=== PATIENT | male | born 1980 | race Caucasian/White ===

== ENCOUNTER 2021-02-22 09:21 | Emergency (ER) | payer BC, SELFPAY ==
[2021-02-22 09:33] VITALS: BP 185/107; PULSE 103; RESP 18; TEMP 37; O2SAT 98; BMI 35.2
--- NOTE | 2021-02-22 09:43 | HMH.EDUTC ---
[facility] [place] Clinical Impression: Upper respiratory infection Qualifiers: URI type: unspecified viral URI Qualified Code(s): J06.9 - Acute upper respiratory infection, unspecified Disposition: Home, Self-Care Condition on Discharge: Good Instructions: DI for Viral Upper Respiratory Infection -- Adult Additional Instructions: You have been tested for COVID19. Please isolate yourself as if you are positive until test results received. Return to [facility] or ER if symptoms worsen Prescriptions: Brompheniramine/Pseudoephed/Dm [Bromfed DM Cough Syrup 5mL] 5 ml PO Q4HP PRN 10 Days #180 ml PRN Reason: Cough Transmission Status: Received by [facility] #[id number] predniSONE [Prednisone 20mg Tab] 20 mg PO BID 5 Days #10 tab Transmission Status: Sent to [facility] #[id number] Referrals: Provider,Referral, [Primary Care Provider] - Time of Disposition: 09:59 Medical Decision Making - Umair Inquiry Pt receiving controlled substance: No Vital Signs: 02/22/21 09:33 Temperature 98.6 F Temperature Source Oral Pulse Rate [Left] 103 H Respiratory Rate 18 Blood Pressure [Right Arm] 185/107 H Blood Pressure Mean [Right Arm] 133 02 Sat by Pulse Oximetry 98 - Lab Data Lab results reviewed: Yes: I reviewed the patient's lab results. [facility] [place] - General Stated complaint: sore throat, cough, runny nose, congestion Time Seen by Provider: 02/22/21 09:43 Mode of Arrival: Ambulatory Source of Information: Patient Limitations: No Limitations Description of Symptoms (Recalled from Triage Doc. by RN): pt c/o cough, runny ose, sneezing and a scratchy throat. HEENT Symptoms (Recalled from RN notes): Yes (nasal drainage/congestion, sneezing and scratchy throat) Resp Symptoms (Recalled from RN notes): Yes (cough) Skin Symptoms (Recalled from RN notes): No MS Symptoms (Recalled from RN notes): No Functional Status (Recalled from RN notes): na - History of Present Illness Provider Complaint: Sore throat, cough, congestion, runny nose X 2 days. No fever. No loss of taste or smell. No known exposure to COVID19. He has been vaccinated. Took Mucinex yesterday. No vomiting or diarrhea. Onset (ago): day(s) (2) Relieving factors: none Exacerbating factors: none Associated symptoms: denies other symptoms Treatments prior to arrival: other (Mucinex) - Related Data Previous Rx's Medication Instructions Recorded Brompheniramine/Pseudoephed/Dm 5 ml PO Q4HP PRN 10 Days #180 ml 02/22/21 [Bromfed DM Cough Syrup 5mL] predniSONE [Prednisone 20mg 20 mg PO BID 5 Days #10 tab 02/22/21 Tab] Allergies Allergy/AdvReac Type Severity Reaction Status Date / Time No Known Allergies Allergy Verified 02/22/21 09:40 - Worker's Comp Is this a Worker's Comp case?: No [facility] History - Hepatitis A Screen Drug use history?: No High risk sexual behaviors?: No History of sexually transmitted infection?: No Currently employed?: No Childcare worker?: No Do you have indoor plumbing?: Yes Do you have electricity?: Yes Attestation statement:: This patient has been screened for Hepatitis A risk factors. I have reviewed the patient's past medical history: Yes ROS Obtained: Yes All systems reviewed & no additional complaints - Constitutional Constitutional: Reports body ache, Denies fever(s), Reports malaise - ENT Ears, Nose, Mouth, and Throat: Reports nasal congestion, Reports nasal discharge, Reports sinus pain, Reports sore throat - Respiratory Respiratory: Reports cough Physical Exam - General General appearance: alert, in no apparent distress - Head Head exam: normocephalic - Eye Eye exam: Present: PERRL - ENT ENT exam: Present: TM's normal bilaterally - Expanded ENT Exam Nose exam: Present: sinus tenderness Throat exam: Present: other (PND) - Neck Neck exam: Present: normal inspection. Absent: lymphadenopathy - Chest Chest inspection: Present: normal inspection, symmetric c
[2021-02-22 09:57] LABS: UTC Strep Screen (Rapid) Negative (Negative)
[2021-02-22 10:06] VITALS: BP 174/101; PULSE 98; RESP 16; TEMP 36.9
== END 2021-02-22 10:07 | disposition home or self-care (01) ==
PROVIDERS: Emergency Provider Physician Assistant
DX: J06.9 Acute upper respiratory infection, unspecified (principal); Z20.822 Contact with and (suspected) exposure to COVID-19
CPT/HCPCS: 87880; 99203; C9803; G0463; U0003; U0005

== ENCOUNTER → 2021-09-20 14:40 | Outpatient (CLI) | payer BC, SELFPAY ==
[2021-09-20 14:18] LABS: Alanine Aminotransferase 34 U/L (12-78); Albumin Level 4.4 g/dl (3.5-5.0); Albumin/Globulin Ratio 1.5 (1.1-1.8); Alkaline Phosphatase 73 U/L (38-126); Anion Gap 12.8 mEq/L (5-15); Aspartate Amino Transferase 53 U/L (17-59); Bilirubin,Total 0.3 mg/dl (0.2-1.3); Blood Urea Nitrogen 19 mg/dl (9-20); Calcium 9.6 mg/dl (8.4-10.2); Carbon Dioxide 27 mmol/L (22.0-30.0); Chloride 102 mmol/L (98-107); Chol/HDL Ratio 6.1 (1-3.5); Cholesterol 206 mg/dl (140-200); Estimated Glomerular Filt Rate 124 ml/min (>60); GFR (African American) 150 ML/MIN (>60); Globulin 2.9 g/dL (1.3-3.2); Glucose 84 mg/dl (74-100); HDL Cholesterol 34 mg/dl (40-60); Potassium 3.8 mmoL/L (3.5-5.1); Sodium 138 mmol/L (136-145); Total Protein,Serum 7.3 g/dl (6.3-8.2); Triglycerides 183 mg/dl (30-150); VLDL Cholesterol 37 mg/dL (0-40)
[2021-09-20 14:30] LABS: Direct LDL Cholesterol 105.36 mg/dL (100-129)
[2021-09-20 14:33] LABS: 25-OH Vitamin D, Total 47.9 ng/mL (30-100)
[2021-09-20 14:50] LABS: Thyroid Stimulating Hormone 3.85 uIU/mL (0.465-4.68)
== END ==
PROVIDERS: PCP Nurse Practitioner Family; Visit Provider Nurse Practitioner Family
DX: I10 Essential (primary) hypertension (principal); E55.9 Vitamin D deficiency, unspecified; Z79.899 Other long term (current) drug therapy
CPT/HCPCS: 80053; 80061; 82306; 84436; 84443

== ENCOUNTER 2021-11-29 09:13 | Emergency (ER) | payer BC, SELFPAY ==
[2021-11-29 09:42] VITALS: BP 151/101; PULSE 98; RESP 15; TEMP 37; O2SAT 97; BMI 33.7
[2021-11-29 09:42] LABS: UTC Strep Screen (Rapid) Negative (Negative)
--- NOTE | 2021-11-29 10:05 | HMH.EDUTC ---
[facility] [place] Dis[place] Clinical Impression: Bronchitis Pharyngitis Qualifiers: Pharyngitis/tonsillitis etiology: unspecified etiology Qualified Code(s): J02.9 - Acute pharyngitis, unspecified Disposition: Home, Self-Care Condition on Discharge: Good Instructions: DI for Pharyngitis/Tonsillopharyngitis -- Adult, DI for Acute Bronchitis, Preventing the Spread of Coronavirus Discharge Instructions Additional Instructions: Drink plenty of fluids. Take tylenol or ibuprofen for pain or fever. Take the medications as directed. Follow up with your regular doctor. GO TO THE ER FOR ANY WORSENING SYMPTOMS Quarantine until you know the results of your covid-19 test. Notify your school or workplace of your results and follow their instructions regarding return to work/school. Prescriptions: Benzonatate [Benzonatate 100mg cap] 100 mg PO TIDP PRN #30 cap PRN Reason: Cough Transmission Status: Received by [facility] # methylPREDNISolone [Medrol] 4 mg PO DIRECTED 6 Days #21 packet Transmission Status: Received by [facility] # Azithromycin [Z-Michael 250mg Tab*] 250 mg PO UD DOSE PK #6 tab Transmission Status: Received by [facility] # Referrals: Rajiv Weems APRN [Primary Care Provider] - Time of Disposition: 10:33 Medical Decision Making - Medical Records Medical records reviewed: No: I reviewed the patient's medical records. - Umair Inquiry Pt receiving controlled substance: No Vital Signs: 11/29/21 09:42 11/29/21 10:34 Temperature 98.6 F 98.6 F Temperature Source Oral Pulse Rate 98 H Pulse Rate [Left] 98 H Respiratory Rate 15 15 Blood Pressure 151/101 H Blood Pressure [Right Arm] 151/101 H Blood Pressure Mean [Right Arm] 117 02 Sat by Pulse Oximetry 97 - Lab Data Lab Results 11/29/21 09:36: Strep Scn Rapid Clinic Negative [facility] HPI - General Stated complaint: Sore throat, cough, congestion Time Seen by Provider: 11/29/21 10:05 Mode of Arrival: Ambulatory Source of Information: Patient Limitations: No Limitations Description of Symptoms (Recalled from Triage Doc. by RN): patient comes in with complaints of sore throat, cough that began yesterday. patient states that he was exposed to covid by coworkers HEENT Symptoms (Recalled from RN notes): Yes Resp Symptoms (Recalled from RN notes): Yes Skin Symptoms (Recalled from RN notes): No MS Symptoms (Recalled from RN notes): No Functional Status (Recalled from RN notes): n/a - History of Present Illness Provider Complaint: He is here with complaints of sore throat for the past 2 days. He was exposed to covid-19 at his work about 4 days ago. - Related Data Home Medications Medication Instructions Recorded Confirmed cholecalciferol (vitamin D3) 1,250 1,250 mcg PO WEEKLY 09/20/21 09/20/21 mcg (50,000 unit) capsule Previous Rx's Medication Instructions Recorded amitriptyline 50 mg tablet 50 mg PO DAILY #30 tab 09/20/21 clonazepam 0.5 mg tablet 0.5 mg PO BID #4 tab 09/20/21 omeprazole 40 mg capsule,delayed 40 mg PO DAILY #30 cap 09/20/21 release propranolol 10 mg tablet 10 mg PO BID #30 tab 09/20/21 Azithromycin [Z-Michael 250mg Tab*] 250 mg PO UD DOSE PK #6 tab 11/29/21 Benzonatate [Benzonatate 100mg 100 mg PO TIDP PRN #30 cap 11/29/21 cap] methylPREDNISolone [Medrol] 4 mg PO DIRECTED 6 Days #21 11/29/21 packet Allergies Allergy/AdvReac Type Severity Reaction Status Date / Time No Known Allergies Allergy Verified 11/29/21 09:46 - Worker's Comp Is this a Worker's Comp case?: No [facility] History - Hepatitis A Screen Attestation statement:: This patient has been screened for Hepatitis A risk factors. I have reviewed the patient's past medical history: Yes Medical History: Reports:: Anxiety, Depression, Gastroesophageal Reflux Disease(GERD), Hyperlipidemia, Hypertension Other Medical History: Reports: Anemia Other Surgeries: Yes: No Previo
[2021-11-29 10:34] VITALS: BP 151/101; PULSE 98; RESP 15; TEMP 37
== END 2021-11-29 10:37 | disposition home or self-care (01) ==
PROVIDERS: Emergency Provider Nurse Practitioner Family; PCP Nurse Practitioner Family
DX: U07.1 COVID-19 (principal); J02.9 Acute pharyngitis, unspecified; D64.9 Anemia, unspecified; I10 Essential (primary) hypertension; K21.9 Gastro-esophageal reflux disease without esophagitis; E78.5 Hyperlipidemia, unspecified; G47.00 Insomnia, unspecified; F32.A Depression, unspecified; F41.9 Anxiety disorder, unspecified; Z79.52 Long term (current) use of systemic steroids; Z79.899 Other long term (current) drug therapy; Z82.49 Family history of ischemic heart disease and other diseases of the circulatory system; Z83.3 Family history of diabetes mellitus; Z80.9 Family history of malignant neoplasm, unspecified
CPT/HCPCS: 87880; 99213; C9803; G0463; U0003; U0005

== ENCOUNTER → 2022-07-23 09:30 | Outpatient (CLI) | payer BC, SELFPAY ==
[2022-07-23 13:35] LABS: Basophils # 0.1 K/mm3 (0-0.2); Basophils % 0.7 % (0.1-2.0); Eosinophils # 0.2 K/mm3 (0.0-0.4); Eosinophils % 2.4 % (0.1-12.0); Hematocrit 46.6 % (42.0-52.0); Lymphocytes # 2.1 K/mm3 (0.7-4.5); Lymphocytes % 30.3 % (10-50); Mean Corpuscular HGB Conc 32.2 g/dL (31.8-35.4); Mean Corpuscular Volume 86.9 fl (80-94); Mean Platelet Volume 9.9 fl (7.4-10.4); Monocytes # 0.4 K/mm3 (0.1-1.0); Monocytes % 5.7 % (1.7-9.3); Neutrophils # 4.3 K/mm3 (1.8-7.8); Neutrophils % 60.9 % (37.0-80.0); Platelet Count 211 K/mm3 (142-424); Red Blood Count 5.36 M/mm3 (4.60-6.20); Red Cell Distribution Width 13.8 % (11.5-17.5)
[2022-07-23 13:39] LABS: Chloride 103 mmol/L (98-107); Sodium 138 mmol/L (136-145)
[2022-07-23 13:40] LABS: Potassium 3.7 mmoL/L (3.5-5.1)
[2022-07-23 13:42] LABS: Alanine Aminotransferase 32 U/L (12-78); Albumin Level 4.9 g/dl (3.5-5.0); Albumin/Globulin Ratio 1.6 (1.1-1.8); Alkaline Phosphatase 71 U/L (38-126); Anion Gap 12.7 mEq/L (5-15); Aspartate Amino Transferase 38 U/L (17-59); Bilirubin,Total 0.6 mg/dl (0.2-1.3); Blood Urea Nitrogen 14 mg/dl (9-20); Carbon Dioxide 26 mmol/L (22.0-30.0); Cholesterol 210 mg/dl (140-200); Estimated Glomerular Filt Rate 123 ml/min (>60); GFR (African American) 149 ML/MIN (>60); Total Protein,Serum 7.9 g/dl (6.3-8.2); Triglycerides 209 mg/dl (30-150); VLDL Cholesterol 42 mg/dL (0-40)
[2022-07-23 13:43] LABS: Calcium 9.4 mg/dl (8.4-10.2); Chol/HDL Ratio 5.8 (1-3.5); Glucose 87 mg/dl (74-100); HDL Cholesterol 36 mg/dl (40-60)
[2022-07-23 13:54] LABS: Direct LDL Cholesterol 120.61 mg/dL (100-129)
[2022-07-23 14:13] LABS: Thyroid Stimulating Hormone 1.32 uIU/mL (0.465-4.68)
[2022-07-23 17:22] LABS: 25-OH Vitamin D, Total 40.4 ng/mL (30-100)
[2022-07-23 19:00] LABS: Prostate Specific Ag Screen 1.1 ng/ml (0.0-4.0)
[2022-07-23 21:15] LABS: Hemoglobin A1C 5.2 % (4.0-6.0)
== END ==
PROVIDERS: PCP Nurse Practitioner Family; Visit Provider Nurse Practitioner Family
DX: I10 Essential (primary) hypertension (principal); R53.83 Other fatigue; R73.03 Prediabetes; Z12.5 Encounter for screening for malignant neoplasm of prostate; E66.9 Obesity, unspecified; Z68.35 Body mass index [BMI] 35.0-35.9, adult
CPT/HCPCS: 80053; 80061; 82306; 83036; 84443; 85025; G0103

== ENCOUNTER 2023-06-18 22:37 | Outpatient (CLI) | payer BC, SELFPAY ==
[2023-06-18 18:57] LABS: Basophils % 0.8 % (0.1-2.0); Eosinophils # 0.2 K/mm3 (0.0-0.4); Eosinophils % 3.7 % (0.1-12.0); Hematocrit 39.2 % (42.0-52.0); Hemoglobin 12.3 g/dL (14.1-18.0); Lymphocytes % 40.3 % (10-50); Mean Corpuscular HGB Conc 31.3 g/dL (31.8-35.4); Mean Corpuscular Hemoglobin 26.2 pg (27.0-31.2); Mean Corpuscular Volume 83.8 fl (80-94); Mean Platelet Volume 11.1 fl (7.4-10.4); Monocytes # 0.3 K/mm3 (0.1-1.0); Monocytes % 6.2 % (1.7-9.3); Neutrophils # 2.4 K/mm3 (1.8-7.8); Neutrophils % 48.9 % (37.0-80.0); Platelet Count 231 K/mm3 (142-424); Red Blood Count 4.68 M/mm3 (4.60-6.20); Red Cell Distribution Width 14.5 % (11.5-17.5); White Blood Count 4.8 K/mm3 (4.8-10.8)
[2023-06-18 19:35] LABS: Alanine Aminotransferase 28 U/L (12-78); Albumin Level 4.6 g/dl (3.5-5.0); Albumin/Globulin Ratio 1.6 (1.1-1.8); Alkaline Phosphatase 75 U/L (38-126); Anion Gap 13.9 mEq/L (5-15); Aspartate Amino Transferase 40 U/L (17-59); Bilirubin,Total 0.3 mg/dl (0.2-1.3); Blood Urea Nitrogen 12 mg/dl (9-20); Calcium 9.4 mg/dl (8.4-10.2); Carbon Dioxide 25 mmol/L (22.0-30.0); Chloride 105 mmol/L (98-107); Chol/HDL Ratio 7.3 (1-3.5); Cholesterol 218 mg/dl (140-200); Estimated Glomerular Filt Rate 105 ml/min (>60); GFR (African American) 127 ML/MIN (>60); Globulin 2.8 g/dL (1.3-3.2); Glucose 117 mg/dl (74-100); HDL Cholesterol 30 mg/dl (40-60); Potassium 3.9 mmoL/L (3.5-5.1); Sodium 140 mmol/L (136-145); Total Protein,Serum 7.4 g/dl (6.3-8.2); Triglycerides 292 mg/dl (30-150); VLDL Cholesterol 58 mg/dL (0-40)
[2023-06-18 19:46] LABS: Direct LDL Cholesterol 118.22 mg/dL (100-129)
[2023-06-18 20:08] LABS: 25-OH Vitamin D, Total 31.7 ng/mL (30-100); Thyroid Stimulating Hormone 1.91 uIU/mL (0.465-4.68)
== END 2023-06-18 23:59 ==
PROVIDERS: PCP Nurse Practitioner Family; Visit Provider Nurse Practitioner Family
DX: R10.9 Unspecified abdominal pain (principal); R11.0 Nausea; R14.2 Eructation; E66.9 Obesity, unspecified; Z68.34 Body mass index [BMI] 34.0-34.9, adult; Z79.899 Other long term (current) drug therapy
CPT/HCPCS: 80053; 80061; 82306; 84443; 85025

== ENCOUNTER 2023-07-23 08:29 | Day surgery (SDC) | payer BC, SELFPAY ==
[2023-07-22 14:29] VITALS: BMI 36.6
[2023-07-23] VITALS (7 sets, daily range): BP systolic 103–144; BP diastolic 65–90; PULSE 85–104; RESP 18; TEMP 36.3–36.4; O2SAT 90–95
[2023-07-23] MEDS: LACTATED RINGERS 1000ML 1,000 ML 100 ML IV (08:51)
--- NOTE | 2023-07-23 09:56 | HMH.SCOPE ---
Procedure: Date: 07/23/23 Patient Date of :: 1980 Procedure Performed:: EGD & biopsies Indications:: GERD, dyspepsia Performing Provider:: Paul Menendez MD Referring Provider:: Rajiv Weems APRN Sedation:: Propofol Procedure:: The gastroscope was gently passed through the incisoral orifice into the oral cavity and under direct visualization the esophagus was intubated. The endoscope was passed down the esophagus, through the stomach, and into the duodenum. Color, texture, mucosa, and anatomy of the esophagus, stomach, and duodenum were carefully examined with the scope. Findings:: Oropharynx: normal Esophagus: normal EG Junction: intact at 40 cm Cardia: normal Fundus: normal Body: normal, biopsies obtained for h.pylori Antrum: normal Duodenal bulb: normal Duodenum (second and third portion): normal Impression: Normal EGD. No evidence of hiatus hernia or esophagitis Specimens:: Gastric Recommendations:: Antireflux behavior and PPI therapy as clinically indicated Complications:: None Estimated blood obtained (mL): 0 Colonoscopy Component Colonoscopy Component Was a colonoscopy performed during today's procedure?: No
--- NOTE | 2023-07-23 09:58 | HMH.SCOPE ---
Procedure: Date: 07/23/23 Patient Date of :: 1980 Procedure Performed:: Screening colonoscopy Indications:: Colorectal screening, rectal bleeding Performing Provider:: Paul Menendez MD Referring Provider:: Rajiv Weems APRN Sedation:: Propofol Procedure:: After placing the patient in the left lateral decubitus position, the colonoscopy was gently inserted into the rectum and under direct visualization advanced to the cecum which was identified by transillumination in the right lower quadrant, identification of the ileocecal valve, appendiceal orifice, and cecal strap. Color, texture, mucosa, and anatomy of the colon were carefully examined with the scope. Findings:: Anal canal: normal, external hemorrhoids Rectum: normal, irritated internal hemorrhoids Sigmoid colon: normal without polyps or inflammatory changes Descending colon: normal without polyps or inflammatory changes Splenic flexure: normal Transverse colon: normal without polyps or inflammatory changes Hepatic flexure: normal Ascending colon: normal without polyps or inflammatory changes Cecum: normal Terminal ileum: not visualized Impression: Normal colonoscopy Internal/external hemorrhoids Recommendations:: Follow up examination in about TEN years or so, sooner if clinically indicated. Complications:: None Estimated blood obtained (mL): 0 Colonoscopy Component Colonoscopy Component Was a colonoscopy performed during today's procedure?: Yes Recommended follow up colonoscopy of at least 10 years?: Yes
--- NOTE | 2023-07-23 10:34 | P.PNANES_ITS ---
[facility] Disclaimer: The information contained in this section may have been updated after the patient was seen, as this information can be updated by other users. Medical History History of gastroesophageal reflux (GERD) History of hypertension Bronchitis Pharyngitis Upper respiratory infection Surgical History History of esophagogastroduodenoscopy (EGD) Family History Other No significant family history Social History (Updated 07/23/23 @ 08:51 by Leticia Spencer RN) Smoking Status: Never smoker alcohol intake: never substance use type: denies use current occupational status: employed Travel in the last 8 weeks: None household members: spouse housing: house caffeine: Yes [facility] Anesthesia Checklist Patient Identification Patient Identification: Verbal (Name & ) Structural Data Admitted From: Home Planned Operative Procedure/s: egd,colonoscopy Consent for Planned Operative Procedure(s) Verified: Yes Airway Assessment Mallampati Score:: Class II C-Spine Mobility Assessed: Yes TMJ Mobility Assessed: Yes Dentition: Good Dentition Neurological Assessment Level of Consciousness: Awake, Alert and Appropriate Anesthesia Plan Anesthesia Risk discussed: Yes Anesthesia Plan: Verified ASA Class: II Anesthesia Type: MAC
== END 2023-07-23 10:35 | disposition home or self-care (01) ==
PROVIDERS: PCP Nurse Practitioner Family; Visit Provider Internal Medicine Gastroenterology
PROC: 0DJ08ZZ Inspection of Upper Intestinal Tract, Via Natural or Artificial Opening Endoscopic (ICD-10-PCS; CPT 43235; principal; 2023-07-23 09:30)
DX: K21.9 Gastro-esophageal reflux disease without esophagitis (principal); R10.13 Epigastric pain; K29.50 Unspecified chronic gastritis without bleeding; K62.5 Hemorrhage of anus and rectum; K64.4 Residual hemorrhoidal skin tags; K64.8 Other hemorrhoids
CPT/HCPCS: 43239; 45378; J2704

== ENCOUNTER 2024-03-23 08:42 | Emergency (ER) | payer BC, SELFPAY ==
[2024-03-23 10:15] VITALS: BP 128/84; PULSE 85; RESP 18; TEMP 37.1; O2SAT 98; BMI 35.2
--- NOTE | 2024-03-23 10:19 | EXP.UTC ---
Discharge Plan Disposition Patient Disposition: Home, Self-Care Condition: Good Prescriptions Prescriptions: New azithromycin [Zithromax] 250 mg tablet 250 mg PO UD DOSE PK Qty: 6 0RF Rx Instructions: Take two (2) tablets today, then one (1) tablet days #2 thru #5 benzonatate 100 mg capsule 100 mg PO TIDP PRN (Reason: Cough) Qty: 30 0RF methylprednisolone 4 mg Tablets,Dose Pack 4 mg PO DIRECTED 6 Days Qty: 21 0RF Rx Instructions: Take 1 pack as directed for 6 days No Action amitriptyline 75 mg tablet 75 mg PO DAILY Qty: 90 3RF propranolol 10 mg tablet 10 mg PO BID Qty: 180 1RF dicyclomine 20 mg tablet 20 mg PO TID Qty: 90 2RF esomeprazole magnesium [Nexium] 20 mg Capsule,Delayed Release(Dr/Ec) 20 mg PO DAILY Referrals Follow up/Referrals: Rajiv Weems APRN [Primary Care Provider] - See instructions Activity Restrictions/Add. Instructions Additional Instructions/Restrictions: Drink plenty of fluids. Take tylenol or ibuprofen for pain or fever. Take the medications as directed. Follow up with your regular doctor. GO TO THE ER FOR ANY WORSENING SYMPTOMS Clinical Impressions Clinical Impression: Otitis media, Pharyngitis Stand Alone Forms Stand Alone Forms: Work/School Release Instructions Patient Instructions: Sore Throat, DI for Pharyngitis/Tonsillopharyngitis -- Adult Print Language Print Language: Belgian Discharge ED Provider: Vladimri Baker [facility] General Stated complaint: losing voice, cough, sore throat Time Seen by Provider: 03/23/24 10:19 Related Data Home Medications ?Medication ?Instructions ?Recorded ?Confirmed esomeprazole magnesium 20 mg 20 mg PO DAILY 07/23/23 03/23/24 capsule,delayed release (Nexium) Previous Rx's ?Medication ?Instructions ?Recorded amitriptyline 75 mg tablet 75 mg PO DAILY muscle spasms #90 05/07/23 tabs propranolol 10 mg tablet 10 mg PO BID #180 tabs 05/07/23 dicyclomine 20 mg tablet 20 mg PO TID #90 tabs 11/10/23 azithromycin 250 mg tablet 250 mg PO UD DOSE PK #6 tabs 03/23/24 (Zithromax) benzonatate 100 mg capsule 100 mg PO TIDP PRN Cough #30 caps 03/23/24 methylprednisolone 4 mg tablets in 4 mg PO DIRECTED 6 days #21 tabs 03/23/24 a dose pack Allergies Allergy/AdvReac Type Severity Reaction Status Date / Time No Known Allergies Allergy Verified 07/23/23 08:38 [facility] Disclaimer: The information contained in this section may have been updated after the patient was seen, as this information can be updated by other users. Medical History (Updated 03/23/24 @ 10:38 by Vladimir Baker APRN) Depression Anxiety History of gastroesophageal reflux (GERD) History of hypertension Bronchitis Pharyngitis Upper respiratory infection Surgical History History of esophagogastroduodenoscopy (EGD) Family History Other No significant family history Social History (Updated 07/23/23 @ 10:35 by Dickson Marquez CRNA) Smoking Status: Never smoker alcohol intake: never substance use type: denies use current occupational status: employed Travel in the last 8 weeks: None household members: spouse housing: house caffeine: Yes ROS Obtained: Yes All systems reviewed & no additional complaints except as documented Constitutional Constitutional: Reports poor appetite Eyes Eyes: Reports system reviewed and no additional complaints, except as documented ENT Ears, Nose, Mouth, and Throat: Reports as per HPI Cardiovascular Cardiovascular: Reports system reviewed and no additional complaints, except as documented and Denies chest pain Respiratory Respiratory: Denies shortness of breath, Denies chest congestion, Reports cough, Denies stridor and Denies wheezing Gastrointestinal Gastrointestingal: Reports system reviewed and no additional complaints, except as documented; Denies abdominal pain, diarrhea or vomiting Musculoskeletal Musculoskeletal: Reports system reviewed and no additional complaints, except as documented and Denies arthralgias Integumentary/Breasts Skin/Breast: Reports system reviewed and no additional complaints, except as documented and Denies rash Neurologic Neurologic: Denies paresthesias Allergic/Immunologic Allergic/Immunologic: Denies wheezing Physical Exam General General appearance: alert and in no apparent distress Eye Eye exam: Present normal appearance, PERRL and EOMI ENT ENT exam: Present mucous membranes moist and normal external ear exam Expanded ENT Exam External ear exam: Present normal external inspection TM/Canal exam: Bilateral TM: erythema and bulging Nose exam: Absent sinus tenderness Nasal speculum exam: Bilateral: normal Mouth exam: Present normal external inspection; Absent drooling Teeth exam: Present normal inspection Throat exam: Present tonsillar erythema and tonsillomegaly Neck Neck exam: Present normal inspection, full ROM and trachea midline; Absent tenderness, lymphadenopathy or thyromegaly Chest Chest inspection: Present normal inspection and symmetric chest wall rise; Absent tenderness or rash Respiratory Respiratory exam: Present normal lung sounds bilaterally; Absent respiratory distress, wheezes, stridor or accessory muscle use Cardiovascular Cardiovascular exam: Present regular rate, normal rhythm and normal heart sounds Abdominal Exam Abdominal exam: Present soft; Absent distention, tenderness, guarding, rebound or rigidity Extremities Exam Extremities exam: Present normal inspection, full ROM and normal capillary refill; Absent tenderness or calf tenderness Back Exam Back exam: Present normal inspection and full ROM; Absent tenderness Neurological Exam Neurological exam: Present alert and oriented X3 Psychiatric Psychiatric exam: Present normal affect and normal mood Skin Skin exam: Present warm, dry, intact and normal color Lymphatic Lymphatic Findings: no adenopathy Medical Decision Making Medical Records Medical records reviewed: No I reviewed the patient's medical records. Screening: Per USPSTF and CDC recommendations, given the prevalence of disease in our region, it is our hospital?s policy to screen for HIV and viral Hepatitis for all patients aged 18 and over and those with ongoing risk factors. Umair Inquiry Pt receiving controlled substance: No
[2024-03-23 10:29] LABS: UTC Strep Screen (Rapid) Negative (Negative)
[2024-03-23 10:40] VITALS: BP 128/84; PULSE 85; RESP 18; TEMP 37.1; O2SAT 98
== END 2024-03-23 10:42 | disposition home or self-care (01) ==
LOC: UTC 08:55 → ER 09:01 → UTC 09:01
PROVIDERS: Emergency Provider Nurse Practitioner Family; PCP Nurse Practitioner Family
DX: H66.93 Otitis media, unspecified, bilateral (principal); J02.9 Acute pharyngitis, unspecified; R05.9 Cough, unspecified; R63.8 Other symptoms and signs concerning food and fluid intake
CPT/HCPCS: 87880; 99212; G0381

== ENCOUNTER 2024-03-25 10:24 | Outpatient (CLI) | payer BC, SELFPAY ==
[2024-03-25 18:22] LABS: Iron 39 ug/dL (49-181)
[2024-03-25 18:32] LABS: Total Iron Binding Capacity 523 ug/dL (261-462)
[2024-03-25 18:39] LABS: HIV (1&2) Antibody Rapid NONREACTIVE (NONREACTIVE)
[2024-03-25 18:53] LABS: Prostate Specific Ag Screen 0.9 ng/ml (0.0-4.0)
[2024-03-27 08:36] LABS: HCV Ab Non Reactive (Non Reactive)
[2024-03-31 01:07] LABS: F001-IgE Egg White <0.10 kU/L (Class 0); F002-IgE Milk <0.10 kU/L (Class 0); F003-IgE Codfish <0.10 kU/L (Class 0); F004-IgE Wheat <0.10 kU/L (Class 0); F010-IgE Sesame Seed <0.10 kU/L (Class 0); F013-IgE Peanut <0.10 kU/L (Class 0); F014-IgE Soybean <0.10 kU/L (Class 0); F024-IgE Shrimp <0.10 kU/L (Class 0); F256-IgE Walnut <0.10 kU/L (Class 0); F338-IgE Scallop <0.10 kU/L (Class 0)
== END 2024-03-25 23:59 | disposition home or self-care (01) ==
LOC: LAB.DROPOF 03-27 08:56
PROVIDERS: PCP Family Medicine; Visit Provider Family Medicine
DX: Z00.00 Encounter for general adult medical examination without abnormal findings (principal); Z11.59 Encounter for screening for other viral diseases; R10.9 Unspecified abdominal pain
CPT/HCPCS: 83540; 83550; 86003; 86008; 86803; 87389; G0103

== ENCOUNTER 2024-04-10 18:13 | Emergency (ER) | payer BC, SELFPAY ==
[2024-04-10 18:55] VITALS: BP 151/85; PULSE 114; RESP 20; TEMP 37.4; O2SAT 97; BMI 34.9
--- NOTE | 2024-04-10 19:17 | EXP.UTC ---
Discharge Plan Disposition Patient Disposition: Home, Self-Care Condition: Good Prescriptions Prescriptions: New cefdinir 300 mg capsule 300 mg PO BID Qty: 20 0RF fluticasone propionate [Flonase Allergy Relief] 50 mcg/actuation spray,suspension 2 spray intranasal DAILY Qty: 16 0RF Rx Instructions: administer into each nostril daily guaifenesin [Mucinex] 1,200 mg tablet extended release 12hr 1,200 mg PO Q12H PRN (Reason: congestion) Qty: 20 0RF No Action lisinopril-hydrochlorothiazide 10-12.5 mg tablet 1 tab PO DAILY Qty: 30 2RF amitriptyline 75 mg tablet 75 mg PO DAILY Qty: 90 3RF propranolol 10 mg tablet 10 mg PO BID Qty: 180 1RF esomeprazole magnesium [Nexium] 20 mg capsule,delayed release(DR/EC) 20 mg PO DAILY Referrals Follow up/Referrals: Tawnya Perales PA [Primary Care Provider] - See instructions Activity Restrictions/Add. Instructions Additional Instructions/Restrictions: *Monitor Temp, Over the counter Motrin or Tylenol as directed/as needed Tylenol every 4 hours and Motrin every 6 hours (as long as your family doctor has told you that you can take it) for fever or pain. and straight to ER if unable to lower temp less than 101.0 after medication given *Warm salt water gargles may help to soothe the throat *Throat Lozenges? *Warm fluids like tea with honey may help to soothe the throat? *Sleep elevated *Humidifier/Vaporizer Take medication as prescribed Your throat swab was sent for culture. Those results are typically sent to your primary care. Be sure to follow up in 2-3 days with your family doctor/primary care physician if no improvement so they can review those result and treat if necessary. If you don?t have a primary care doctor, I recommend you get one but in the mean time, you will have to return to a walk in clinic Follow up IMMEDIATELY for new or worsening symptoms or no Noticeable improvement over the next 48-72 hours. 911 for difficulty breathing or swallowing Clinical Impressions Clinical Impression: Otitis media Stand Alone Forms Stand Alone Forms: Work/School Release Instructions Patient Instructions: Middle Ear Infection, Cefdinir Print Language Print Language: Sinhala Discharge ED [place] Cu[place] [facility] [place] General Stated complaint: cough, h/a, body aches Mode of Arrival: Ambulatory Source of Information: Patient Limitations: No Limitations Time Seen by Provider: 04/10/24 19:17 Description of Symptoms (Recalled from Triage Doc. by RN): PATIENT C/O COUGH, BODY ACHES, STOPPED UP EAR, HEADACHE, AND SCRATCHY THROAT HEENT Symptoms (Recalled from RN notes): Yes Resp Symptoms (Recalled from RN notes): Yes Skin Symptoms (Recalled from RN notes): No MS Symptoms (Recalled from RN notes): No Functional Status (Recalled from RN notes): WNL History of Present Illness Provider Complaint: Patient states that he has been having pain and pressure in his left ear for several weeks States that he was recently on a zpack and it did help but as soon as the medication stopped his ear pain returned States also been having scratchy throat, body aches and cough so he came back in to get checked Related Data Home Medications ?Medication ?Instructions ?Recorded ?Confirmed esomeprazole magnesium 20 mg 20 mg PO DAILY 03/25/24 04/10/24 capsule,delayed release (Nexium) Previous Rx's ?Medication ?Instructions ?Recorded amitriptyline 75 mg tablet 75 mg PO DAILY muscle spasms #90 03/25/24 tabs lisinopril 10 1 tab PO DAILY #30 tabs 03/25/24 mg-hydrochlorothiazide 12.5 mg tablet propranolol 10 mg tablet 10 mg PO BID #180 tabs 03/25/24 cefdinir 300 mg capsule 300 mg PO BID #20 caps 04/10/24 fluticasone propionate 50 2 spray intranasal DAILY #16 grams 04/10/24 mcg/actuation nasal spray,suspension (Flonase Allergy Relief) guaifenesin 1,200 mg tablet, 1,200 mg PO Q12H PRN congestion 04/10/24 extended release 12 hr (Mucinex) #20 tabs Allergies Allergy/AdvReac Type Severity Reaction Status Date / Time No Known Allergies Allergy Verified 03/25/24 09:42 Worker's Comp Is this a Worker's Comp case?: No [facility] Disclaimer: The information contained in this section may have been updated after the patient was seen, as this information can be updated by other users. Medical History Depression Anxiety History of gastroesophageal reflux (GERD) History of hypertension Bronchitis Pharyngitis Upper respiratory infection Surgical History History of esophagogastroduodenoscopy (EGD) Family History Other No significant family history Social History Smoking Status: Never smoker alcohol intake: never substance use type: denies use current occupational status: employed Travel in the last 8 weeks: None household members: spouse housing: house caffeine: Yes Have you lived/traveled outside [place] in past 30 days?: No Contact w/someone who lives/traveled outside US past 30 days?: No Exposure to someone with infectious disease in past 14 days?: No Do you have a fever (greater than 100.4 F or 38 C)?: No Have you tested positive for COVID-19: No Exposed to someone with COVID-19 in past 14 days?: No Do you have a sore throat?: No Do you have a cough?: Yes Do you have any weakness?: No Do you have any diarrhea?: No Are you experiencing any unusual bleeding?: No Do you have any muscle aches/pain?: Yes Do you have any abdominal pain?: No Are you experiencing loss of taste or smell?: No ROS Obtained: Yes All systems reviewed & no additional complaints except as documented and Yes Systems reviewed as appropriate & no additional complaints except as documented Constitutional Constitutional: Reports system reviewed and no additional complaints, except as documented, Reports as per HPI, Reports body ache and Reports chills ENT Ears, Nose, Mouth, and Throat: Reports system reviewed and no additional complaints, except as documented, Reports as per HPI, Reports otalgia, Reports nasal congestion, Reports nasal discharge and Reports sore throat Cardiovascular Cardiovascular: Reports system reviewed and no additional complaints, except as documented and Reports as per HPI Respiratory Respiratory: Reports system reviewed and no additional complaints, except as documented, Reports as per HPI and Reports cough Gastrointestinal Gastrointestingal: Reports system reviewed and no additional complaints, except as documented and as per HPI Physical Exam General General appearance: alert and in no apparent distress ENT ENT exam: Present mucous membranes moist Expanded ENT Exam TM/Canal exam: Left TM: erythema and bulging Nose exam: Absent sinus tenderness Throat exam: Present normal inspection Respiratory Respiratory exam: Present normal lung sounds bilaterally; Absent respiratory distress or wheezes Cardiovascular Cardiovascular exam: Present regular rate, normal rhythm and normal heart sounds Neurological Exam Neurological exam: Present alert, oriented X3 and normal gait Medical Decision Making Medical Records Screening: Per USPSTF and CDC recommendations, given the prevalence of disease in our region, it is our hospital?s policy to screen for HIV and viral Hepatitis for all patients aged 18 and over and those with ongoing risk factors. Umair Inquiry Pt receiving controlled substance: No Umair was queried for this patient: No Vital Signs: 04/10/24 18:55 Temperature 99.4 F Temperature Source Oral Pulse Rate [Left Brachial] 114 H Respiratory Rate 20 Blood Pressure [Left Arm] 151/85 H Blood Pressure Mean [Left Arm] 107 Blood Pressure Source [Left Arm] Automatic Cuff Blood Pressure Position [Left Arm] Sitting 02 Sat by Pulse Oximetry 97 Oxygen Delivery Method Room Air Lab Data Lab results reviewed: Yes I reviewed the patient's lab results.
[2024-04-10 19:23] LABS: UTC Influenza A Antigen Negative (Negative); UTC Influenza B Antigen Negative (Negative); UTC Strep Screen (Rapid) Negative (Negative)
[2024-04-10 19:32] VITALS: BP 151/85; PULSE 114; RESP 20; TEMP 37.4; O2SAT 97
== END 2024-04-10 19:33 | disposition home or self-care (01) ==
PROVIDERS: Emergency Provider Nurse Practitioner; PCP Student in an Organized Health Care Education/Training Program
DX: H66.93 Otitis media, unspecified, bilateral (principal)
CPT/HCPCS: 87635; 87804; 87880; 99213; G0381

== ENCOUNTER 2024-06-02 12:52 | Outpatient (CLI) | payer BC, SELFPAY ==
[2024-06-02 14:35] VITALS: BMI 35.7
== END 2024-06-02 23:59 | disposition home or self-care (01) ==
LOC: DIETICIAN 12:55
PROVIDERS: Visit Provider Nurse Practitioner Family
DX: R10.9 Unspecified abdominal pain (principal); R19.7 Diarrhea, unspecified
CPT/HCPCS: 97802

== ENCOUNTER 2024-06-30 09:44 | Outpatient (CLI) | payer BC, SELFPAY ==
[2024-06-30 18:53] LABS: Basophils % 0.6 % (0.1-2.0); Eosinophils # 0.1 K/mm3 (0.0-0.4); Eosinophils % 2.2 % (0.1-12.0); Hematocrit 38.1 % (42.0-52.0); Hemoglobin 11.3 g/dL (14.1-18.0); Lymphocytes # 0.6 K/mm3 (0.7-4.5); Lymphocytes % 11.4 % (10-50); Mean Corpuscular HGB Conc 29.7 g/dL (31.8-35.4); Mean Corpuscular Hemoglobin 22.7 pg (27.0-31.2); Mean Corpuscular Volume 76.5 fl (80-94); Mean Platelet Volume 11.6 fl (7.4-10.4); Monocytes # 0.5 K/mm3 (0.1-1.0); Monocytes % 9.4 % (1.7-9.3); Neutrophils # 4.2 K/mm3 (1.8-7.8); Neutrophils % 76.2 % (37.0-80.0); Platelet Count 199 K/mm3 (142-424); Red Blood Count 4.98 M/mm3 (4.60-6.20); Red Cell Distribution Width 17.5 % (11.5-17.5); White Blood Count 5.4 K/mm3 (4.8-10.8)
[2024-06-30 20:18] LABS: Ferritin 8.89 ng/ml (17.9-464)
[2024-06-30 20:21] LABS: Iron 47 ug/dL (49-181)
[2024-06-30 22:05] LABS: Total Iron Binding Capacity 497 ug/dL (261-462)
[2024-07-02 08:20] LABS: Testosterone,Total 250 ng/dL (264-916)
== END 2024-06-30 23:59 | disposition home or self-care (01) ==
LOC: LAB.DROPOF 07-01 10:07
PROVIDERS: PCP Family Medicine; Visit Provider Family Medicine
DX: Z00.00 Encounter for general adult medical examination without abnormal findings (principal); D50.9 Iron deficiency anemia, unspecified; R53.83 Other fatigue
CPT/HCPCS: 82728; 83540; 83550; 84403; 85025

== ENCOUNTER 2024-07-21 17:52 | Outpatient (CLI) | payer BC, SELFPAY ==
[2024-07-23 08:13] LABS: LH 3.2 mIU/mL (1.7-8.6)
[2024-07-28 00:08] LABS: Free Testosterone (Direct) 7.8 pg/mL (6.8-21.5)
== END 2024-07-21 23:59 | disposition home or self-care (01) ==
LOC: LAB.DROPOF 17:53
PROVIDERS: PCP Family Medicine; Visit Provider Family Medicine
DX: R79.89 Other specified abnormal findings of blood chemistry (principal)
CPT/HCPCS: 83002; 84402; 84403

== ENCOUNTER 2024-07-22 11:59 | Outpatient (CLI) | payer BC, SELFPAY ==
[2024-07-22] MEDS: SODIUM CHLORIDE 0.9% 50ML BAG 50 ML IV (12:10)
[2024-07-22] MEDS: IRON SUCROSE COMPLEX 200 MG in 0.9 % SODIUM CHLORIDE 100 ML 220 MG IV (12:10)
[2024-07-22 12:15] VITALS: BP 143/75; PULSE 98; RESP 17; TEMP 36.6; O2SAT 96
[2024-07-22 12:45] VITALS: BP 140/79; PULSE 95; RESP 17; O2SAT 96
== END 2024-07-22 13:00 | disposition home or self-care (01) ==
LOC: INF 11:59
PROVIDERS: PCP Family Medicine; Visit Provider Internal Medicine Medical Oncology
DX: D50.9 Iron deficiency anemia, unspecified (principal)
CPT/HCPCS: 96365; J1756

== ENCOUNTER 2024-07-29 09:49 | Outpatient (CLI) | payer BC, SELFPAY ==
[2024-07-29 10:11] VITALS: BP 141/76; PULSE 91; RESP 18; TEMP 36.4; O2SAT 99
[2024-07-29] MEDS: IRON SUCROSE COMPLEX 200 MG in 0.9 % SODIUM CHLORIDE 100 ML 220 MG IV (10:11)
[2024-07-29] MEDS: SODIUM CHLORIDE 0.9% 50ML BAG 50 ML IV (10:11)
[2024-07-29] MEDS: SODIUM CHLORIDE 0.9% 10ML FLUSH SYRINGE 10 ML IV (10:17)
[2024-07-29 10:48] VITALS: BP 130/70; PULSE 88; RESP 20; O2SAT 99
== END 2024-07-29 10:55 | disposition home or self-care (01) ==
LOC: INF 09:50
PROVIDERS: PCP Family Medicine; Visit Provider Internal Medicine Medical Oncology
DX: D50.9 Iron deficiency anemia, unspecified (principal)
CPT/HCPCS: 96365; J1756

== ENCOUNTER 2024-08-05 14:04 | Outpatient (CLI) | payer BC, SELFPAY ==
[2024-08-05] MEDS: SODIUM CHLORIDE 0.9% 50ML BAG 50 ML IV (14:20)
[2024-08-05] MEDS: SODIUM CHLORIDE 0.9% 10ML FLUSH SYRINGE 10 ML IV (14:20)
[2024-08-05] MEDS: IRON SUCROSE COMPLEX 200 MG in 0.9 % SODIUM CHLORIDE 100 ML 220 MG IV (14:21)
[2024-08-05 14:24] VITALS: BP 144/95; PULSE 92; RESP 20; TEMP 36.9; O2SAT 96
[2024-08-05 15:10] VITALS: BP 152/91; PULSE 98; RESP 20; O2SAT 97
== END 2024-08-05 15:10 | disposition home or self-care (01) ==
LOC: INF 14:06
PROVIDERS: PCP Family Medicine; Visit Provider Internal Medicine Medical Oncology
DX: D50.9 Iron deficiency anemia, unspecified (principal)
CPT/HCPCS: 96365; J1756

== ENCOUNTER 2024-08-12 14:08 | Outpatient (CLI) | payer BC, SELFPAY ==
[2024-08-12 14:40] VITALS: BP 124/74; PULSE 74; RESP 18; O2SAT 100
[2024-08-12] MEDS: IRON SUCROSE COMPLEX 200 MG in 0.9 % SODIUM CHLORIDE 100 ML 220 MG IV (14:40)
[2024-08-12 15:14] VITALS: BP 126/72; PULSE 75; RESP 18; O2SAT 100
[2024-08-12] MEDS: SODIUM CHLORIDE 0.9% 50ML BAG 50 ML IV (15:24)
[2024-08-12] MEDS: SODIUM CHLORIDE 0.9% 10ML FLUSH SYRINGE 10 ML IV (15:25)
== END 2024-08-12 15:25 | disposition home or self-care (01) ==
LOC: INF 14:08
PROVIDERS: PCP Family Medicine; Visit Provider Internal Medicine Medical Oncology
DX: D50.9 Iron deficiency anemia, unspecified (principal)
CPT/HCPCS: 96365; J1756

== ENCOUNTER 2024-08-19 10:38 | Outpatient (CLI) | payer BC, SELFPAY ==
[2024-08-19] MEDS: IRON SUCROSE COMPLEX 200 MG in 0.9 % SODIUM CHLORIDE 100 ML 220 MG IV (10:49)
[2024-08-19] MEDS: SODIUM CHLORIDE 0.9% 50ML BAG 50 ML IV (10:50)
[2024-08-19 10:52] VITALS: BP 123/75; PULSE 89; RESP 18; TEMP 36.2; O2SAT 95
[2024-08-19 11:38] VITALS: BP 137/73; PULSE 87; RESP 18; O2SAT 95
== END 2024-08-19 11:38 | disposition home or self-care (01) ==
LOC: INF 10:39
PROVIDERS: PCP Family Medicine; Visit Provider Internal Medicine Medical Oncology
DX: D50.9 Iron deficiency anemia, unspecified (principal)
CPT/HCPCS: 96365; J1756

== ENCOUNTER 2024-09-22 13:48 | Outpatient (CLI) | payer BC, SELFPAY ==
[2024-09-22 14:14] LABS: Basophils % 0.4 % (0.1-2.0); Eosinophils # 0.2 Kmm3 (0.0-0.4); Eosinophils % 4.5 % (0.1-12.0); Hemoglobin 8.8 g/dL (14.1-18.0); Immature Granulocytes # 0 10^3uL; Immature Granulocytes % 0 %; Lymphocytes # 1.4 K/mm3 (0.7-4.5); Lymphocytes % 30.8 % (10-50); Mean Corpuscular HGB Conc 30.3 g/dL (31.8-35.4); Mean Corpuscular Hemoglobin 22.4 pg (27.0-31.2); Mean Corpuscular Volume 73.8 fl (80-94); Mean Platelet Volume 11.3 fl (7.4-10.4); Monocytes # 0.5 K/mm3 (0.1-1.0); Monocytes % 11.7 % (1.7-9.3); Neutrophils # 2.3 K/mm3 (1.8-7.8); Neutrophils % 52.6 % (37.0-80.0); Nucleated Red Blood Cells # 0 10^3/uL; Nucleated Red Blood Cells % 0 %; Platelet Count 233 K/mm3 (142-424); Red Blood Count 3.93 M/mm3 (4.60-6.20); Red Cell Distribution Width 15.8 % (11.5-17.5); Red Cell Distribution Width-SD 42.2 fL; White Blood Count 4.5 K/mm3 (4.8-10.8)
[2024-09-22 15:43] LABS: Iron 44 ug/dL (49-181)
[2024-09-22 15:53] LABS: Total Iron Binding Capacity 452 ug/dL (261-462)
[2024-09-22 16:20] LABS: Ferritin 6.12 ng/ml (17.9-464)
== END 2024-09-22 23:59 | disposition home or self-care (01) ==
LOC: LAB 13:50
PROVIDERS: PCP Family Medicine; Visit Provider Internal Medicine Medical Oncology
DX: D50.9 Iron deficiency anemia, unspecified (principal)
CPT/HCPCS: 36415; 82728; 83540; 83550; 85025

== ENCOUNTER 2024-09-30 14:01 | Outpatient (CLI) | payer BC, SELFPAY ==
--- OUTSIDE RECORDS SUMMARY | 2005-08-19 08:33 | XMS_ITS | Continuity of Care Document ---
Author Organization [facility] Address 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 Please verify the information with the johnson of the legal document before using it for clinical purposes. Encounters Encounter Description Practice Location Reason(s) For Visit Diagnoses Date Provider Providers Copied on Encounter [facility], [address], [place], [place], [id number], tel:[phone] [facility] No Information Robson Ott. [address], [place], [place], [id number], [place]. tel:[phone] Referring Provider: Tru Pope, [address], [place], [address]. tel:[phone] Family History Family Member Type Diagnosis Age At Onset No Information Payers Payer name Insurance type Covered democrat ID Authoriza tion(s) No Information Social History Type Description Quantity Date Captured Comments Alcohol Use Details Unknown Caffeine Use Details Unknown Tobacco Use Status No Information Smoking Status No Information Sex Male Chief Complaint And Reason For Visit No Information Reason For Referral Reason For Referral No Information History Of Present Illness Encounter Date Complaint History Of Prese nt Illness No Information Functional Status Date Functional Assessmen t No Information Instructions Date Instruction Additional Infor mation No Information Assessments Type Assessment Date No Information Patient Care Teams Name Effective Dates (start - stop) Status Members No Information
[2024-09-30 15:01] LABS: Basophils % 0.7 % (0.1-2.0); Eosinophils # 0.2 Kmm3 (0.0-0.4); Eosinophils % 3.8 % (0.1-12.0); Hematocrit 28.5 % (42.0-52.0); Hemoglobin 8.4 g/dL (14.1-18.0); Immature Granulocytes # 0.01 10^3uL; Immature Granulocytes % 0.2 %; Lymphocytes # 1.6 K/mm3 (0.7-4.5); Lymphocytes % 36.2 % (10-50); Mean Corpuscular HGB Conc 29.5 g/dL (31.8-35.4); Mean Corpuscular Hemoglobin 22.2 pg (27.0-31.2); Mean Corpuscular Volume 75.2 fl (80-94); Mean Platelet Volume 11.5 fl (7.4-10.4); Monocytes # 0.5 K/mm3 (0.1-1.0); Monocytes % 11.8 % (1.7-9.3); Neutrophils # 2.1 K/mm3 (1.8-7.8); Neutrophils % 47.3 % (37.0-80.0); Nucleated Red Blood Cells # 0 10^3/uL; Nucleated Red Blood Cells % 0 %; Platelet Count 247 K/mm3 (142-424); Red Blood Count 3.79 M/mm3 (4.60-6.20); Red Cell Distribution Width-SD 43.6 fL; White Blood Count 4.5 K/mm3 (4.8-10.8)
== END 2024-09-30 23:59 | disposition home or self-care (01) ==
LOC: LAB 14:02
PROVIDERS: PCP Family Medicine; Visit Provider Internal Medicine Medical Oncology
DX: D50.9 Iron deficiency anemia, unspecified (principal)
CPT/HCPCS: 36415; 85025

== ENCOUNTER 2024-10-03 12:25 | Day surgery (SDC) | payer BC, SELFPAY ==
[2024-09-30 09:52] VITALS: BMI 35.2
[2024-10-03] VITALS (7 sets, daily range): BP systolic 72–126; BP diastolic 50–70; PULSE 86–110; RESP 17–18; TEMP 36.2–36.4; O2SAT 96–97
--- NOTE | 2024-10-03 13:07 | P.PNANES_ITS ---
[facility] Disclaimer: The information contained in this section may have been updated after the patient was seen, as this information can be updated by other users. Medical History Otitis media Pharyngitis Depression Anxiety History of gastroesophageal reflux (GERD) History of hypertension Bronchitis Pharyngitis Upper respiratory infection Surgical History History of esophagogastroduodenoscopy (EGD) Family History Other No significant family history Social History Smoking Status: Never smoker alcohol intake: never substance use type: denies use current occupational status: employed Travel in the last 8 weeks?: None household members: spouse housing: house caffeine: Yes Have you lived/traveled outside [place] in past 30 days?: No Contact w/someone who lives/traveled outside [place] past 30 days?: No Exposure to someone with infectious disease in past 14 days?: No Do you have a fever (greater than 100.4 F or 38 C)?: No Have you tested positive for COVID-19?: No Exposed to someone with COVID-19 in past 14 days?: No Do you have a sore throat?: No Do you have a cough?: No Do you have any weakness?: No Do you have any diarrhea?: No Are you experiencing any unusual bleeding?: No Do you have any muscle aches/pain?: No Do you have any abdominal pain?: No Are you experiencing loss of taste or smell?: No [facility] Anesthesia Checklist Patient Identification Patient Identification: Arm Band and Family Structural Data Admitted From: Home Planned Operative Procedure/s: EGD and Colonoscopy. Consent for Planned Operative Procedure(s) Verified: Yes Verified Documents: Surgical Consent NPO Status Verified Time NPO: 00:00 Additional verifications Patient : No Anesthesia Reactions: No Hx Blood Transfusions: No Blood Transfusion Reaction: No Cephalosporin Allergy: No Previous Colonoscopy: Yes Airway Assessment Mallampati Score:: Class II C-Spine Mobility Assessed: Yes TMJ Mobility Assessed: Yes Dentition: Good Dentition Neurological Assessment Level of Consciousness: Awake, Alert, Appropriate and Follows Commands Hx Seizures: No Numbness or tingling in extremities: No Anesthesia Plan Anesthesia Risk discussed: Yes ASA Class: II Anesthesia Type: MAC
--- NOTE | 2024-10-03 14:22 | EXP.HP ---
History of Present Illness *Admission Date: 10/03/24 *Reason for visit:: Iron deficiency anemia *History of present illness: Mr. Adams is a 44-year-old gentleman with iron deficiency anemia who is here for diagnostic EGD and colonoscopy. The patient has had an increase in bright red rectal bleeding which he attributes to hemorrhoids. He also gets cramps, bloating, diarrhea, nausea and belching. He has occasional epigastric discomfort. The examination is deemed medically necessary for diagnostic EGD and colonoscopy. The patient has been seen, interviewed and examined prior to the procedure by both myself and the anesthesia provider. [facility] Disclaimer: The information contained in this section may have been updated after the patient was seen, as this information can be updated by other users. Medical History Otitis media Pharyngitis Depression Anxiety History of gastroesophageal reflux (GERD) History of hypertension Bronchitis Pharyngitis Upper respiratory infection Surgical History History of esophagogastroduodenoscopy (EGD) Family History Other No significant family history Social History Smoking Status: Never smoker alcohol intake: never substance use type: denies use current occupational status: employed Travel in the last 8 weeks?: None household members: spouse housing: house caffeine: Yes Have you lived/traveled outside [place] in past 30 days?: No Contact w/someone who lives/traveled outside [place] past 30 days?: No Exposure to someone with infectious disease in past 14 days?: No Do you have a fever (greater than 100.4 F or 38 C)?: No Have you tested positive for COVID-19?: No Exposed to someone with COVID-19 in past 14 days?: No Do you have a sore throat?: No Do you have a cough?: No Do you have any weakness?: No Do you have any diarrhea?: No Are you experiencing any unusual bleeding?: No Do you have any muscle aches/pain?: No Do you have any abdominal pain?: No Are you experiencing loss of taste or smell?: No Other Medical History Have you received the Pneumonia Vaccine: No Review of Systems Review of Systems Review of systems (narrative): Negative *Cardiovascular Comments: Negative *Gastrointestinal Comments: Negative *Genitourinary Comments: Negative *Musculoskeletal Comments: Negative *Neurologic Comments: Negative Meds Home Medications and Allergies Home Medications ?Medication ?Instructions ?Recorded ?Confirmed ?Type multivitamin 1 tab PO DAILY 05/05/24 10/03/24 History amitriptyline 75 mg tablet 75 mg PO DAILY muscle spasms #90 06/30/24 10/03/24 Rx tabs esomeprazole magnesium 20 mg 20 mg PO DAILY #90 caps 06/30/24 10/03/24 Rx capsule,delayed release (Nexium) krill oil 500 mg capsule 500 mg PO DAILY #90 caps 06/30/24 10/03/24 Rx lisinopril 10 1 tab PO DAILY #90 tabs 06/30/24 10/03/24 Rx mg-hydrochlorothiazide 12.5 mg tablet propranolol 10 mg tablet 10 mg PO BID #180 tabs 06/30/24 10/03/24 Rx psyllium husk 0.52 gram capsule 0.52 g PO DAILY #90 caps 06/30/24 10/03/24 Rx (Daily Fiber) dicyclomine 20 mg tablet See Rx Instructions .Route 09/13/24 10/03/24 Rx .COMPLEX #90 tabs sodium,potassium,mag sulfates 17.5 See Rx Instructions PO .COMPLEX 09/27/24 10/03/24 Rx gram-3.13 gram-1.6 gram oral soln #354 mL (Suprep Bowel Prep Kit) New Prescriptions to Start Prescriptions: Allergies Allergy/AdvReac Type Severity Reaction Status Date / Time No Known Allergies Allergy Verified 09/30/24 09:51 Exam Data for Last 24 hours Vital signs and Labs for Last 24 Hours: Temp Pulse Resp BP Pulse Ox O2 Del Method 97.6 F 110 H 18 126/63 97 Room Air 10/03/24 12:45 10/03/24 12:45 10/03/24 12:45 10/03/24 12:45 10/03/24 12:45 10/03/24 12:45 I & O for Last 24 hours: Intake & Output 09/30/24 10/01/24 10/02/24 10/03/24 23:59 23:59 23:59 23:59 Weight 245 lb *Routine HEENT Exam Head: Present normocephalic Eye: Present EOMI and PERRL ENT: Present mucous membranes moist *Routine Neck Exam Neck: Present supple *Routine Respiratory Exam Respiratory: Present CTA bilaterally *Routine Cardiovascular Exam Cardiovascular: Present RRR *Routine Abdominal Exam Abdominal: Present soft and normoactive bowel sounds; Absent tenderness *Routine Rectal Exam Rectal:: deferred *Routine Genitalia Exam Genitalia:: deferred *Routine Extremities Exam Extremities: Absent cyanosis, clubbing or edema *Routine Skin Exam Skin: Present warm; Absent rash *Routine Neurological Exam Neurological: Present alert and oriented X3 Assessment and Plan *Assessment and plan (1) Iron deficiency anemia: Status: Acute Category: Medical Code(s): D50.9 - Iron deficiency anemia, unspecified (2) Change in bowel habits: Status: Acute Category: Medical Code(s): R19.4 - Change in bowel habit (3) Globus sensation: Status: Acute Category: Medical Code(s): R09.A2 - Foreign body sensation, throat (4) Hoarseness: Status: Acute Category: Medical Code(s): R49.0 - Dysphonia (5) Throat clearing: Status: Acute Category: Medical Code(s): R09.89 - Other specified symptoms and signs involving the circulatory and respiratory systems (6) Diarrhea: Status: Acute Category: Medical Code(s): R19.7 - Diarrhea, unspecified (7) Bloating: Status: Acute Category: Medical Code(s): R14.0 - Abdominal distension (gaseous) Plan A/P: 1. Iron deficiency anemia with some bleeding (possibly hemorrhoidal), bloating, cramps, globus sensation and hoarseness is the preprocedural diagnosis. Patient also has had a change in bowel habits. The patient will be anesthetized/sedated using MAC sedation. The patient has been seen and examined. Cardiac and lung assessment prior to the examination is stable. Proceed with planned diagnostic EGD and colonoscopy.
--- NOTE | 2024-10-03 14:35 | HMH.PROCNOTE ---
[facility] Procedure Note Date: 10/03/24 Time: 14:43 Procedure Note:: Upper Endoscopy Procedure Report: Esophagogastroduodenoscopy with cold biopsies Endoscopost: Daniel Avila II, MD Referring Physician: POLO Zepeda Date of Procedure: October 03, 2024 Equipment: Olympus GIF 190 standard upper endoscope Sedation: MAC sedation Indications: Mr. Adams is a 44-year-old gentleman who is here for diagnostic EGD and colonoscopy. The patient has had ongoing iron deficiency anemia and bright red rectal bleeding which the patient attributes to internal hemorrhoids. The bleeding has worsened over the last 6 to 12 months and drips into the commode with almost every bowel movement. He has had chronic diarrhea and was diagnosed with IBS diarrhea. He will sometimes have alternating constipation. He reports bloating and moderate belching. He has some nausea and intermittent dyspepsia with epigastric discomfort. The patient did have panendoscopy with Dr. Paul Menendez MD in July 2023. The reports at that time showed normal EGD and colonoscopy and the patient had internal and external hemorrhoids but there were no other pertinent findings noted. Procedure: Prior to the procedure, a history and physical exam was performed, and patient's medications and allergies were reviewed. The risks, benefits and alternatives of the sedation and procedure were discussed with the patient. All questions were answered and informed consent was obtained. The patient was brought to the procedure room. Patient identification and proposed procedure were verified by the physician and the nurse. The patient was placed in a left lateral decubitus position and the scope was passed under direct vision. Throughout the procedure, the patient's blood pressure, pulse, and oxygen saturations were monitored continuously. The upper GI endoscopy was accomplished without difficulty. The patient tolerated the procedure well. Findings: The scope was passed directly into the upper esophagus and advanced to the fourth portion of duodenum and proximal jejunum. A cold biopsy was taken from the proximal jejunum for disaccharidase assay. The proximal jejunum, post bulbar duodenum, ampulla and duodenal bulb were normal with normal mucosa and conniventes. Cold biopsies were taken from the first portion of duodenum and duodenal bulb to rule out celiac disease. The scope was withdrawn through a normal duodenal bulb and pylorus into the stomach. There was very mild linear antral gastropathy. The body and fundus of the stomach were normal. There were a couple of nonbleeding angiodysplasias along the lesser curvature. Upon retroflexion there was no hiatal hernia. The scope was then withdrawn into the esophagus. There was no evidence of reflux esophagitis or Rob's. The remainder of the esophageal mucosa was normal. Impression: 1. Mild antral reactive gastropathy Plan: I will follow-up the biopsies and disaccharidase assay and proceed with diagnostic colonoscopy. There was no clear etiology of the patient's iron deficiency from the upper digestive tract. 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 This gas production (carbon dioxide, hydrogen, methane, etc.) from the lower intestinal tract is the byproduct of colonic bacterial fermentation. This colonic fermentation occurs when there is more carbohydrate (dietary starches, sugars and high residue plant fiber) substrate that does not get digested (in the middle or small intestine) or occurs when there is colonic fecal buildup and colonic bacterial overgrowth. This indeed leads to bloating and the gas pressure buildup with gas pressure gradients that do drive backflow and dyspepsia.
--- NOTE | 2024-10-03 14:46 | HMH.PROCNOTE ---
[facility] Procedure Note Date: 10/03/24 Time: 15:03 Procedure Note:: Colonoscopy Procedure Report: Colonoscopy with cold snare polypectomy and hemorrhoid band ligation Endoscopist: Daniel Avila II, MD Referring physician: POLO Zepeda Date of Procedure: October 03, 2024 Equipment: Olympus 190 variable stiffness pediatric colonoscope Sedation: MAC sedation Indication: Mr. Adams is a 44-year-old gentleman who is here for diagnostic EGD and colonoscopy. The patient has had ongoing iron deficiency anemia and bright red rectal bleeding which the patient attributes to internal hemorrhoids. The bleeding has worsened over the last 6 to 12 months and drips into the commode with almost every bowel movement. He has had chronic diarrhea and was diagnosed with IBS diarrhea. He will sometimes have alternating constipation. He reports bloating and moderate belching. He has some nausea and intermittent dyspepsia with epigastric discomfort. The patient did have panendoscopy with Dr. Paul Menendez MD in July 2023. The reports at that time showed normal EGD and colonoscopy and the patient had internal and external hemorrhoids but there were no other pertinent findings noted. Procedure: Prior to the procedure, a history and physical exam was performed, and patient's medications and allergies were reviewed. The risks, benefits and alternatives of the sedation and procedure were discussed with the patient. All questions were answered and informed consent was obtained. The patient was brought to the procedure room. Patient identification and proposed procedure were verified by the physician and the nurse. The patient was placed in a left lateral decubitus position and the scope was passed under direct vision. Throughout the procedure, the patient's blood pressure, pulse, and oxygen saturations were monitored continuously. The colonoscopy was accomplished without difficulty. The patient tolerated the procedure well. Findings: On digital rectal examination there was normal rectal tone. There were no external hemorrhoids. The colonoscope was introduced through the anal canal to the rectum and advanced to the cecum. The ileocecal valve and appendiceal orifice were identified. The scope was advanced a short distance into the ileum which appeared grossly normal. The scope was then withdrawn into the colon. There was a single 4 mm polyp in the ascending colon removed via cold snare polypectomy. The remaining cecum, ascending, transverse, descending, sigmoid and rectum were grossly normal. There were no other mucosal abnormalities identified. Upon retroflexion within the rectum there were grade 2-3 internal hemorrhoids. 3 columns of hemorrhoids were banded using 3 bands with excellent ligation effect. The preparation was excellent throughout with [place] Preparation Score of 9. The cecal time was 12 minutes. Impression: 1. Diminutive ascending colon polyp (4 mm) 2. Grade 2-3 internal hemorrhoids status post band ligation x 3 Plan: I will follow-up the polyp histology and recommend repeat surveillance colonoscopy again in 5 years. I would encourage psyllium bulking fiber. I would avoid NSAIDs. We will discuss additional treatment options.
[2024-10-07 14:11] LABS: Disclaimer Notes (.); Interpretation Notes (.); Lactase 25.96 (>/= 14.0); Maltase 239.11 (>/= 110.0); Palatinase 11.1 (>/= 8.5); Reference Notes (.); Sucrase 50.25 (>/= 25.0)
== END 2024-10-03 16:16 | disposition home or self-care (01) ==
PROVIDERS: PCP Family Medicine; Visit Provider Internal Medicine Gastroenterology
PROC: 0DJ08ZZ Inspection of Upper Intestinal Tract, Via Natural or Artificial Opening Endoscopic (ICD-10-PCS; CPT 45378; principal; 2024-10-03 14:00)
DX: Z12.11 Encounter for screening for malignant neoplasm of colon (principal); K63.5 Polyp of colon; K64.2 Third degree hemorrhoids; K58.0 Irritable bowel syndrome with diarrhea; K31.89 Other diseases of stomach and duodenum; K31.819 Angiodysplasia of stomach and duodenum without bleeding; D50.9 Iron deficiency anemia, unspecified; F32.A Depression, unspecified; F41.9 Anxiety disorder, unspecified; I10 Essential (primary) hypertension; K21.9 Gastro-esophageal reflux disease without esophagitis; Z79.899 Other long term (current) drug therapy
CPT/HCPCS: 43239; 45385; 45398; 82657; C1889; J2003; J2704

== ENCOUNTER 2024-10-07 14:57 | Outpatient (CLI) | payer BC, SELFPAY ==
[2024-10-07 17:00] LABS: Basophils # 0.1 K/mm3 (0-0.2); Basophils % 0.7 % (0.1-2.0); Eosinophils # 0.2 Kmm3 (0.0-0.4); Eosinophils % 2.5 % (0.1-12.0); Hematocrit 29.8 % (42.0-52.0); Hemoglobin 8.5 g/dL (14.1-18.0); Immature Granulocytes # 0.02 10^3uL; Immature Granulocytes % 0.3 %; Lymphocytes # 1.8 K/mm3 (0.7-4.5); Lymphocytes % 26.5 % (10-50); Mean Corpuscular HGB Conc 28.5 g/dL (31.8-35.4); Mean Corpuscular Hemoglobin 20.9 pg (27.0-31.2); Mean Corpuscular Volume 73.4 fl (80-94); Monocytes # 0.7 K/mm3 (0.1-1.0); Monocytes % 10.2 % (1.7-9.3); Neutrophils # 4.1 K/mm3 (1.8-7.8); Neutrophils % 59.8 % (37.0-80.0); Nucleated Red Blood Cells # 0 10^3/uL; Nucleated Red Blood Cells % 0 %; Platelet Count 200 K/mm3 (142-424); Red Blood Count 4.06 M/mm3 (4.60-6.20); Red Cell Distribution Width 15.9 % (11.5-17.5); Red Cell Distribution Width-SD 42.1 fL; White Blood Count 6.9 K/mm3 (4.8-10.8)
[2024-10-07 17:41] LABS: Iron 39 ug/dL (49-181)
[2024-10-07 17:50] LABS: Total Iron Binding Capacity 501 ug/dL (261-462)
== END 2024-10-07 23:59 | disposition home or self-care (01) ==
LOC: LAB 14:58
PROVIDERS: PCP Family Medicine; Visit Provider Internal Medicine Medical Oncology
DX: D50.9 Iron deficiency anemia, unspecified (principal)
CPT/HCPCS: 36415; 82728; 83540; 83550; 85025

== ENCOUNTER 2024-10-14 12:31 | Outpatient (CLI) | payer BC, SELFPAY ==
[2024-10-14] MEDS: SODIUM CHLORIDE 0.9% 10ML FLUSH SYRINGE 10 ML IV (12:46)
[2024-10-14 12:47] VITALS: BP 143/88; PULSE 88; RESP 20; TEMP 37; O2SAT 97
[2024-10-14] MEDS: ferumoxytoL 510 MG in 0.9 % SODIUM CHLORIDE 50 ML 268 MG IV (12:47)
[2024-10-14 13:14] VITALS: BP 135/79; PULSE 86; RESP 20; O2SAT 98
[2024-10-14] MEDS: SODIUM CHLORIDE 0.9% 50ML BAG 50 ML IV (14:25)
== END 2024-10-14 13:14 | disposition home or self-care (01) ==
LOC: INF 12:33
PROVIDERS: PCP Family Medicine; Visit Provider Internal Medicine Medical Oncology
DX: D50.9 Iron deficiency anemia, unspecified (principal)
CPT/HCPCS: 96365; Q0138

== ENCOUNTER 2024-10-20 12:54 | Outpatient (CLI) | payer BC, SELFPAY ==
[2024-10-20 13:08] VITALS: BP 158/87; PULSE 98; RESP 18; TEMP 37; O2SAT 98
[2024-10-20] MEDS: SODIUM CHLORIDE 0.9% 10ML FLUSH SYRINGE 10 ML IV (13:08)
[2024-10-20] MEDS: ferumoxytoL 510 MG in 0.9 % SODIUM CHLORIDE 50 ML 268 MG IV (13:08)
[2024-10-20 13:38] VITALS: BP 131/74; PULSE 96; RESP 18; O2SAT 98
== END 2024-10-20 13:38 | disposition home or self-care (01) ==
LOC: INF 12:55
PROVIDERS: PCP Family Medicine; Visit Provider Internal Medicine Medical Oncology
DX: D50.9 Iron deficiency anemia, unspecified (principal)
CPT/HCPCS: 96365; Q0138

== ENCOUNTER 2024-11-25 15:36 | Outpatient (CLI) | payer BC, SELFPAY ==
[2024-11-25 16:05] LABS: Hematocrit 38.2 % (42.0-52.0); Hemoglobin 12.2 g/dL (14.1-18.0); Immature Granulocytes % 0.2 %; Mean Corpuscular HGB Conc 31.9 g/dL (31.8-35.4); Mean Corpuscular Hemoglobin 24.0 pg (27.0-31.2); Mean Corpuscular Volume 75.0 fl (80-94); Nucleated Red Blood Cells % 0 %; Platelet Count 206 K/mm3 (142-424); Red Blood Count 5.09 M/mm3 (4.60-6.20); Red Cell Distribution Width-SD 53.4 fL; White Blood Count 8.5 K/mm3 (4.8-10.8)
== END 2024-11-25 23:59 | disposition home or self-care (01) ==
PROVIDERS: PCP Family Medicine; Visit Provider Internal Medicine Medical Oncology
DX: D50.9 Iron deficiency anemia, unspecified (principal)
CPT/HCPCS: 36415; 85025

== ENCOUNTER 2024-12-08 15:25 | Outpatient (CLI) | payer BC, SELFPAY ==
--- OUTSIDE RECORDS SUMMARY | 2024-12-08 15:27 | XMS_ITS | Patient Health Record ---
Author Organization [facility] Address [address] [place] [id number] Care Team Providers Care Fall Internship Name Role Phone Lizbeth West Primary Care Provider Reason For Referral No Information Medications Medication SIG (Take, Route, Fr equency, Duration) Notes Start Date End Date Status Lexapro 10 MG 1 tablet Orally Once a day; Duration: 30 day(s) 11/13/2017 Active Lisinopril 10 MG 1 tablet Orally Once a day; Duration: 30 day(s) 11/13/2017 Active Fish Oil 1200 MG 1 capsule Orally THREE TIMES DAILY Active PriLOSEC 20 MG 1 capsule Orally Once a day Active Aspirin 81 MG 1 tablet Orally Once a day; Duration: 30 day(s) 11/13/2017 Active Social History Tobacco Use: Social History Observation Description Date Details (start date - stop date) Never Smoker NA - NA Tobacco Use/Smoking Question Answer Notes Are you a nonsmoker Alcohol Screen Question Answer Notes Did you have a drink containing alcohol in the p ast year? No Points 0 Interpretation Negative Plan Of Treatment Pending Test Test Name Order Date CBC 11/13/2017 COMP Metabolic Panel 11/13/2017 vitamin d 25 11/13/2017 LIPID PANEL 11/13/2017 TSH 11/13/2017 VITAMIN B12 11/13/2017 Insurance Providers Payer Name Payer Address Payer Phone Subscriber Number Group Number Insured Name Patient Relationship to Insured Coverage Start Date Coverage End Date [facility] [address] [place] [phone] [id number] Self - patient is the insured Medical (General) History Medical History History ICD Code anxiety chronic back pain depression headache Acid Reflux
[2024-12-08 18:38] LABS: Iron 70 ug/dL (49-181)
[2024-12-08 18:49] LABS: Total Iron Binding Capacity 457 ug/dL (261-462)
[2024-12-08 19:28] LABS: Ferritin 7.35 ng/ml (17.9-464)
== END 2024-12-08 23:59 | disposition home or self-care (01) ==
LOC: LAB 15:26
PROVIDERS: PCP Family Medicine; Visit Provider Internal Medicine Medical Oncology
DX: D50.9 Iron deficiency anemia, unspecified (principal)
CPT/HCPCS: 36415; 82728; 83540; 83550

== ENCOUNTER 2024-12-27 14:57 | Outpatient (CLI) | payer BC, SELFPAY ==
--- OUTSIDE RECORDS SUMMARY | 2024-12-27 15:01 | XMS_ITS | Patient Health Record ---
Author Organization [facility] Address [address] [place] [phone] Care Team Providers Care Coupler Name Role Phone Amina Liu Primary Care Provider [phone] Reason For Referral No Information Medications Medication SIG (Take, Route, Frequency, Duration) Notes Start Date End Date Status Flonase Allergy Relief 50 MCG/ACT 1 spray in each nostril Nasally Once a day; Duration: 30 day(s) 07/26/2019 Not-Taking Desonide 0.05 % 1 application Externally Twice a day; Duration: 30 days 12/28/2019 Active Claritin 10 MG 1 tablet Orally Once a day; Duration: 30 day(s) 07/07/2019 Not-Taking Propranolol HCl 10 MG 1 tablet Orally Tw ice a day; Duration: 30 days Active Amitriptyline HCl 50 MG 1 tablet Orally Once a day; Duration: 30 days Active Vitamin D (Ergocalciferol) 1.25 MG (65590 UT) 1 capsule Orally once a week; Duration: 30 day(s) Active Problems Problem Type SNOMED Code ICD Code Onset Dates Problem Status W/U Status Risk Notes Problem Hyperlipidemia (35468116) Hyperlipidemia, unspecified (E78.5) Active confirmed Problem Anxiety disorder (824869377) Anxiety disorder, unspecified (F41.9) Active confirmed Problem Essential hypertension (37126147) Essential hypertension (I10) Active confirmed Problem Vitamin D deficiency (87778210) Vitamin D deficiency (E55.9) Active confirmed Plan Of Treatment Pending Test Test Name Order Date Rapid Strep 04/29/2019 CBC With Differential/Platelet 1 Vitamin D, 25-Hydroxy 06/25/2020 Lipid Panel 06/25/2020 Lipid Panel 07/07/2019 Comp. Metabolic Panel (14) 06/25/2020 Influenza A and B nasal swab 04/23/2015 COMPREHENSIVE METABOLIC PANEL 07/07/2019 CBC (H/H, RBC, INDICES, WBC, PLT) 2019 Insurance Providers Payer Name Payer Address Payer Phone Subscriber Number Group Number Insured Name Patient Relationship to Insured Coverage Start Date Coverage End Date [facility] [address] [place] [phone] [id number] Yeison [place] Self - patient is the insured Medical (General) History Medical History History ICD Code anxiety GERD HTN Hyperlipidemia
--- OUTSIDE RECORDS SUMMARY | 2024-12-27 15:01 | XMS_ITS | Patient Health Record ---
Author Organization [facility] Address [address] [place] [phone] Care Team Providers Care Heating Technician Name Role Phone Lizbeth West Primary Care [...] Insured Coverage Start Date Coverage End Date [facility] [address] [place] [phone] [id number] Yeison Mario Self - patient is the insured Medical (General) History Medical History History ICD Code anxiety chronic back pain depression headache Acid Reflux
[2024-12-27 15:06] VITALS: BP 155/95; PULSE 91; RESP 20; TEMP 36.7; O2SAT 99
[2024-12-27] MEDS: ferumoxytoL 510 MG in 0.9 % SODIUM CHLORIDE 50 ML 268 MG IV (15:07)
[2024-12-27] MEDS: SODIUM CHLORIDE 0.9% 10ML FLUSH SYRINGE 10 ML IV (15:10)
[2024-12-27 15:34] VITALS: BP 134/85; PULSE 87; RESP 20; O2SAT 97
== END 2024-12-27 15:34 | disposition home or self-care (01) ==
LOC: INF 14:58
PROVIDERS: PCP Family Medicine; Visit Provider Internal Medicine Medical Oncology
DX: D50.9 Iron deficiency anemia, unspecified (principal)
CPT/HCPCS: 96374; Q0138

== ENCOUNTER 2024-12-30 12:48 | Outpatient (CLI) | payer BC, SELFPAY ==
--- OUTSIDE RECORDS SUMMARY | 2024-12-30 12:55 | XMS_ITS | Patient Health Record ---
Author Organization [facility] Address [address] [place] [phone] Care Team Providers Care Epic [employer] Name Role Phone Lizbeth West Primary Care [...] Insured Coverage Start Date Coverage End Date [facility] [address] [place] [phone] [id number] Yeison Mario Self - patient is the insured Medical (General) History Medical History History ICD Code anxiety chronic back pain depression headache Acid Reflux
--- OUTSIDE RECORDS SUMMARY | 2024-12-30 12:55 | XMS_ITS | Patient Health Record ---
Author Organization [facility] Address [address] [place] [phone] Care Team Providers Care Corporate Secretary Name Role Phone Amina Liu Primary Care Provider Reason For Referral No [...] days Active Vitamin D (Ergocalciferol) 1.25 MG (61161 UT) 1 capsule Orally once a week; Duration: 30 day(s) Active Problems Problem Type SNOMED Code ICD Code Onset Dates Problem Status W/U Status Risk Notes Problem Hyperlipidemia (85825539) Hyperlipidemia, unspecified (E78.5) Active confirmed Problem Anxiety disorder (511493241) Anxiety disorder, unspecified (F41.9) Active confirmed Problem Essential hypertension (77477774) Essential hypertension (I10) Active confirmed Problem Vitamin D deficiency (90634481) Vitamin D deficiency (E55.9) Active confirmed Plan [...] Coverage Start Date Coverage End Date Fe [facility] [address] [place] [phone] [id number] Yeison [place] Self - patient is the insured Medical (General) History Medical History History ICD Code anxiety GERD HTN Hyperlipidemia
[2024-12-30] MEDS: ferumoxytoL 510 MG in 0.9 % SODIUM CHLORIDE 50 ML 268 MG IV (12:58)
[2024-12-30] MEDS: SODIUM CHLORIDE 0.9% 10ML FLUSH SYRINGE 10 ML IV (12:58)
[2024-12-30 13:30] VITALS: BP 165/64; PULSE 98; RESP 18; TEMP 36.6; O2SAT 99
[2024-12-30 13:31] VITALS: BP 158/60; PULSE 88; RESP 18; O2SAT 99
== END 2024-12-30 13:31 | disposition home or self-care (01) ==
LOC: INF 12:50
PROVIDERS: PCP Family Medicine; Visit Provider Internal Medicine Medical Oncology
DX: D50.9 Iron deficiency anemia, unspecified (principal)
CPT/HCPCS: 96365; 96374; Q0138

== ENCOUNTER 2025-02-06 15:21 | Outpatient (CLI) | payer BC, SELFPAY ==
--- OUTSIDE RECORDS SUMMARY | 2025-02-06 15:24 | XMS_ITS | Patient Health Record ---
Author Organization [facility] Address [address] [place] [phone] Care Team Providers Care Java Software Name Role Phone Lizbeth West Primary Care [...] Insured Coverage Start Date Coverage End Date [facility] [address] [place] [phone] [id number] Yeison Mario Self - patient is the insured Medical (General) History Medical History History ICD Code anxiety chronic back pain depression headache Acid Reflux
[2025-02-06 16:05] LABS: Hematocrit 40.8 % (42.0-52.0); Hemoglobin 13.5 g/dL (14.1-18.0); Immature Granulocytes % 0.2 %; Mean Corpuscular HGB Conc 33.1 g/dL (31.8-35.4); Mean Corpuscular Hemoglobin 26.5 pg (27.0-31.2); Mean Corpuscular Volume 80.0 fl (80-94); Nucleated Red Blood Cells % 0 %; Platelet Count 183 K/mm3 (142-424); Red Blood Count 5.10 M/mm3 (4.60-6.20); Red Cell Distribution Width-SD 48.4 fL; White Blood Count 5.5 K/mm3 (4.8-10.8)
[2025-02-06 16:44] LABS: Iron 144 ug/dL (49-181)
[2025-02-06 16:54] LABS: Total Iron Binding Capacity 343 ug/dL (261-462)
[2025-02-06 17:22] LABS: Ferritin 63.7 ng/ml (17.9-464)
== END 2025-02-06 23:59 | disposition home or self-care (01) ==
LOC: LAB 15:22
PROVIDERS: PCP Family Medicine; Visit Provider Internal Medicine Medical Oncology
DX: D50.9 Iron deficiency anemia, unspecified (principal)
CPT/HCPCS: 36415; 82728; 83540; 83550; 85025